=== PATIENT | female | born 1975 | race African-American/Black ===

== ENCOUNTER 2016-12-02 08:07 | Emergency (ER) | payer OTHER ==
[~2016-12-02] VITALS: Ht 177.8 cm; Wt 104.5 kg
[2016-12-02 08:10] VITALS: BP 149/88; PULSE 84; RESP 20; TEMP 97.4; O2SAT 100
--- NOTE | 2016-12-02 08:38 | PD ---
HPI Chief Complaint: Injury Time Seen by Provider: 08:26 Travel History International Travel<30 days: No Contact w/Intl Traveler<30days: No Traveled to known affect area: No History of Present Illness HPI 40-year-old female complains of inability to move the fingers. Patient states that she was seen that [facility] in [place] 5 weeks ago for right wrist fracture. Patient was put on a splint and referred to orthopedist for follow-up. Patient has been unable to get orthopedist to see her since then. Patient states that she took the splint off this morning and noticed persistent swelling of the right wrist and right hand. Patient states that she is unable to move the fingers of the right hands. Patient states that she had persistent pain on the right hand and right wrist. Patient denies any new injury. PFSH Past Medical History Hx Anticoagulant Therapy: No Cardiovascular Problems: No Chemotherapy: No Cerebrovascular Accident: No Diabetes: No Respiratory: No ?: Not LMP: i HAVE IUD Past Surgical History Hysterectomy: No Social History Alcohol Use: Yes (SOCIAL) Tobacco Use: No Substance Use: No Allergies-Medications (Allergen,Severity, Reaction): Coded Allergies: Morphine (Verified Allergy, Unknown, Hallucinations, 12/02/16) Reported Meds & Prescriptions Reported Meds & Active Scripts Active Ultram (Tramadol HCl) 50 Mg Tab 50 Mg PO Q6H PRN Review of Systems General / Constitutional: No: Fever Eyes: No: Visual changes HENT: No: Headaches Cardiovascular: No: Chest Pain or Discomfort Respiratory: No: Shortness of Breath Gastrointestinal: No: Abdominal Pain Genitourinary: No: Dysuria Musculoskeletal: Positive: Weakness, Pain Skin: No Rash Neurologic: No: Weakness Psychiatric: No: Depression Endocrine: No: Polydipsia Hematologic/Lymphatic: No: Easy Bruising Physical Exam Narrative GENERAL: Well-nourished, well-developed patient. SKIN: Focused skin assessment warm/dry. HEAD: Normocephalic. EYES: No scleral icterus. No injection or drainage. NECK: Supple, trachea midline. No JVD or lymphadenopathy. CARDIOVASCULAR: Regular rate and rhythm without murmurs, gallops, or rubs. RESPIRATORY: Breath sounds equal bilaterally. No accessory muscle use. GASTROINTESTINAL: Abdomen soft, non-tender, nondistended. MUSCULOSKELETAL: No cyanosis, or edema. BACK: Nontender without obvious deformity. No CVA tenderness. Patient has edema on the dorsum aspect the right hand. No redness no heat noted. Patient had minimal flexion and extension movement of the fingers except the right fifth finger. Sensory function intact. Patient has mild diffuse tenderness over the right wrist and right hand. Data Data Last Documented VS Vital Signs Date Time Temp Pulse Resp B/P Pulse Ox O2 Delivery O2 Flow Rate FiO2 12/02/16 10:41 99 12/02/16 08:23 Room Air 12/02/16 08:10 97.4 84 20 149/88 Orders Hand, Complete ([id number]) (12/02/16 08:31) Wrist, Complete ([id number]) (12/02/16 08:31) Splint Or Brace Apply/Monitor (12/02/16 10:14) [facility] Medical Decision Making Medical Screen Exam Complete: Yes Emergency Medical Condition: Yes Interpretation(s) Last Impressions Wrist X-Ray 12/02/16830 Signed Impressions: Service Date/Time: Friday, December 02, 2016 08:58 - CONCLUSION: Fracture of the distal right radius with mild dorsal angulation. No evidence of intra- articular extension. The adjacent carpus appears intact. Rosi Lugo MD Hand X-Ray 12/02/16830 Signed Impressions: Service Date/Time: Friday, December 02, 2016 08:59 - CONCLUSION: Distal radial fracture with minimal dorsal angulation. No evidence of articular extension. Rosi Lugo MD Differential Diagnosis Differential diagnosis including fracture right wrist right hand, neuropathy. Narrative Course 40-year-old female with right wrist injury and was seen by ED physician and put on a splint and now has decrease in range of motion of the fingers. I spoke with Dr. Shankar Pacheco, also periodontal assistant. Advised splinting and follow-up in the office. Diagnosis Primary Impression: Fracture of distal end of right radius Qualified Code: S52.501A - Closed fracture of distal end of right radius, unspecified fracture morphology, initial encounter Referrals: Shankar Pacheco MD Patient Instructions: General Instructions Additional Instructions: Follow-up with orthopedist Dr. Shankar Pacheco as directed. Med/Other Pt SpecificInfo: Prescription(s) given Scripts Tramadol (Ultram)50 Mg Tab50 Mg PO Q6H PRN (PAIN) #20 TAB Prov:Srinivas Resendez MD 12/02/16 Disposition: 01 DISCHARGE HOME Condition: Stable Srinivas Resendez MD Dec 02, 2016 08:38
--- NOTE | 2016-12-02 09:19 | RADRPT ---
EXAM DATE/TIME: 12/02/2016 08:58 [facility] COMPARISON: HAND RIGHT COMPLETE ([id number]), December 02, 2016, 8:59. EXTERNAL COMPARISON : [facility] INDICATIONS : Right wrist pain after wrist fracture 8 weeks ago MEDICAL HISTORY : Right wrist fracture SURGICAL HISTORY : None. ENCOUNTER: Initial ACUITY: 2 months PAIN SCORE: 10/10 LOCATION: Right entire wrist FINDINGS: 3 views of the right wrist demonstrate a fracture through the distal radius with mild dorsal angulati on and moderate adjacent soft tissue. The scaphoid appears intact. The remainder of the carpal bones demonstrate normal morphology and alignment. The bones are normal in mineralization. CONCLUSION: Fracture of the distal right radius with mild dorsal angulation. No evidence of intra -articular extension. The adjacent carpus appears intact. Rosi Lugo MD on December 02, 2016 at 9:15 Board Certified Radiologist. This report was verified electronically.
--- NOTE | 2016-12-02 09:20 | RADRPT ---
EXAM DATE/TIME: 12/02/2016 08:59 [facility] COMPARISON: No previous studies available for comparison. EXTERNAL COMPARISON : INDICATIONS : Right hand numbness, swelling for 3 weeks after right wrist fracture 8 weeks ago MEDICAL HISTORY : Right wrist fracture SURGICAL HISTORY : None. ENCOUNTER: Initial ACUITY: 3 weeks PAIN SCORE: 8/10 LOCATION: Right entire hand FINDINGS: The views of the right hand demonstrate a fracture of the distal right radius with mild dorsal angula tion. No evidence of articular extension. The adjacent carpal structures demonstrate normal alignment without evidence of fracture. There is moderate adjacent soft tissue edema. With regards to the osse ous structures of the hand these demonstrate normal alignment without evidence of fracture dislocatio n. The soft tissues are unremarkable. CONCLUSION: Distal radial fracture with minimal dorsal angulation. No evidence of articular extension. Rosi Lugo MD on December 02, 2016 at 9:17 Board Certified Radiologist. This report was verified electronically.
[2016-12-02] MEDS ORDERED: ULTR50TA5 PO (10:19)
== END 2016-12-02 10:45 | disposition home or self-care (01) ==
LOC: NEPC 08:07
DX: S52.501D Unspecified fracture of the lower end of right radius, subsequent encounter for closed fracture with routine healing (principal); X58.XXXD Exposure to other specified factors, subsequent encounter
CPT/HCPCS: 29125; 73110; 73130